=== PATIENT | female | born 1965 | race Caucasian/White ===

== ENCOUNTER 2017-10-03 05:48 | Day surgery (SDC) | END 2017-10-03 09:55 | disposition home or self-care (01) ==

== ENCOUNTER 2017-12-01 10:41 | Day surgery (SDC) | END 2017-12-01 17:56 | disposition home or self-care (01) ==

== ENCOUNTER 2018-10-16 10:53 | Emergency (ER) | payer BC ==
[~2018-10-16] VITALS: Ht 167.6 cm; Wt 73.3 kg
[~2018-10-16 10:53] MED LIST: METFORMIN; NEXIUM; SIMVASTATIN
[2018-10-16 10:56] VITALS: BP 140/71; PULSE 86; RESP 20; Ht 167.6 cm; Wt 73.3 kg
[2018-10-16] MEDS ORDERED: IBUPROFEN 600 MG TAB PO ONE (12:00)
[2018-10-16] MEDS ORDERED: IBUP-1542 PO (14:00)
[2018-10-16] MEDS ORDERED: PRED20TA PO (14:00)
--- NOTE | 2018-10-16 14:02 | ERD ---
ER Documentation Chief Complaint Chief Complaint Complains of a headache and ear pain x 3 days HPI 53-year-old female presents with pain in her bilateral ears and some pain in the throat bitemporal headache for last 3 days. She denies any measured fevers. She denies any cough, shortness of breath, chest pain. ROS All systems reviewed and are negative except as per history of present illness. Medications Home Meds Active Scripts Prednisone* (Prednisone*) 20 Mg Tab, 40 MG PO DAILY for 4 Days, TAB Start October 17, 2018 Prov:SHANTEL ADLER MD 10/16/18 Ibuprofen* (Motrin*) 600 Mg Tab, 600 MG PO Q6, #20 TAB Prov:SHANTEL ADLER MD 10/16/18 Reported Medications [Simvastatin] No Conflict Check 10/03/17 [Metformin] No Conflict Check 10/03/17 [Nexium] No Conflict Check 10/03/17 Allergies Allergies: Coded Allergies: No Known Allergy (Unverified , 12/01/17) PMhx/Soc History of Surgery: Yes (TUBAL LIGATION) Anesthesia Reaction: No Hx Neurological Disorder: No Hx Respiratory Disorders: No Hx Cardiac Disorders: Yes (HIGH CHOL) Hx Psychiatric Problems: No Hx Miscellaneous Medical Probl: No Hx Alcohol Use: No Hx Substance Use: No Hx Tobacco Use: No Smoking Status: Never smoker FmHx Family History: No diabetes, No coronary disease, No other Physical Exam Vitals Vital Signs Date Temp Pulse Resp B/P (MAP) Pulse Ox O2 O2 Flow FiO2 Time Delivery Rate 10/16/18 98.8 86 20 140/71 99 10:56 (94) Physical Exam Const: No acute distress Head: Atraumatic Eyes: Normal Conjunctiva ENT: Normal External Ears, Nose and Mouth. Mild tender anterior cervical lymph nodes. There is some mild swelling and tenderness of the thyroid. TMs normal. Oropharynx normal. Neck: Full range of motion. No meningismus. Resp: Clear to auscultation bilaterally Cardio: Regular rate and rhythm, no murmurs Abd: Soft, non tender, non distended. Normal bowel sounds Skin: No petechiae or rashes Back: No midline or flank tenderness Ext: No cyanosis, or edema Neur: Awake and alert Psych: Normal Mood and Affect Result Diagram: 10/16/18 1206 10/16/18 1206 Results 24 hrs Laboratory Tests Test 1/21/19 12:06 White Blood Count 9.7 10^3/ul Red Blood Count 4.13 10^6/ul Hemoglobin 11.6 g/dl Hematocrit 36.7 % Mean Corpuscular Volume 88.9 fl Mean Corpuscular Hemoglobin 28.1 pg Mean Corpuscular Hemoglobin Concent 31.6 g/dl Red Cell Distribution Width 13.3 % Platelet Count 466 10^3/UL Mean Platelet Volume 8.8 fl Immature Granulocytes % 0.100 % Neutrophils % 59.2 % Lymphocytes % 33.3 % Monocytes % 6.1 % Eosinophils % 1.1 % Basophils % 0.2 % Nucleated Red Blood Cells % 0.0 /100WBC Immature Granulocytes # 0.010 10^3/ul Neutrophils # 5.7 10^3/ul Lymphocytes # 3.2 10^3/ul Monocytes # 0.6 10^3/ul Eosinophils # 0.1 10^3/ul Basophils # 0.0 10^3/ul Nucleated Red Blood Cells # 0.0 10^3/ul Sodium Level 140 mmol/L Potassium Level 4.5 mmol/L Chloride Level 102 mmol/L Carbon Dioxide Level 26 mmol/L Anion Gap 12 Blood Urea Nitrogen 10 mg/dl Creatinine 0.62 mg/dl Est Glomerular Filtrat Rate mL/min > 60 mL/min Glucose Level 122 mg/dl Calcium Level 10.2 mg/dl Total Bilirubin 0.1 mg/dl Direct Bilirubin 0.00 mg/dl Indirect Bilirubin 0.1 mg/dl Aspartate Amino Transf (AST/SGOT) 22 IU/L Alanine Aminotransferase (ALT/SGPT) 23 IU/L Alkaline Phosphatase 87 IU/L Total Protein 8.6 g/dl Albumin 4.5 g/dl Globulin 4.10 g/dl Albumin/Globulin Ratio 1.09 Thyroid Stimulating Hormone (TSH) 0.259 MIU/L Free Thyroxine Index 3.04 ug/ml Thyroxine (T4) 9.8 ug/dl Triiodothyronine (T3) Uptake 31.0 % Monoscreen Negative Current Medications Medications Dose Sig/Elizabeth Start Time Status Last (Trade) Ordered Route PRN Stop Time Admin Dose Reason Admin Ibuprofen 600 mg ONCE ONCE 10/16/18 DC 10/16/18 (Motrin) PO 12:00 12:06 10/16/18 12:02 Procedures/MDM Ultrasound shows heterogeneous swelling of the thyroid without dominant significant nodules. There is mild anemia on CBC thrombocytosis but no leukocytosis. CMP normal. Normal thyroid studies. Patient was given ibuprofen and prednisone 40 mg by mouth. Patient presents with neck pain, mild signs of lymphadenitis and signs of appears to be thyroiditis with normal labs. She will be treated with a short course of ibuprofen, prednisone. Suspect viral syndrome or viral thyroiditis. She is advised to follow-up with primary doctor this week return to the ER for new or worsening symptoms. The patient was stable with no new complaints during the ER course. Clinically, there is no current evidence to suggest meningitis, sepsis, acute abdomen, pneumonia, stroke, acute coronary syndrome, pulmonary embolism, aortic dissection or any other emergent condition appearing to require further evaluation or hospitalization. Patient counseled regarding my diagnostic impression and care plan. Prior to discharge all questions answered. Pt agrees with treatment plan and understands strict return precautions. Pt is instructed to follow up with primary care provider within 24-48 hours. Precautionary instructions provided including instructions to return to the ER if not improving or for any worsening or changing symptoms or concerns. Departure Diagnosis: Primary Impression: Thyroiditis Condition: Stable Patient Instructions: Viral Syndrome (Adult) Additional Instructions: Ultrasound shows swelling of the thyroid, likely viral thyroiditis. Labs show no significant abnormal findings. Recheck for new or worsening symptoms with primary care doctor. SHANTEL ADLER MD Oct 16, 2018 14:02
== END 2018-10-16 14:10 | disposition home or self-care (01) ==
LOC: FTE 10:53
DX: E06.9 Thyroiditis, unspecified (principal); E11.9 Type 2 diabetes mellitus without complications; Z79.84 Long term (current) use of oral hypoglycemic drugs
CPT/HCPCS: 76536; 80053; 84436; 84443; 84479; 85025; 86308; 99284; Z7610